=== PATIENT | male | born 1970 | race Hispanic/Latino ===

== ENCOUNTER → 2025-06-29 | Day surgery (SDC) | payer OTHER ==
[~2025-06-29] MED LIST: ATORVASTATIN CA10 MG PO; GLUCAGON FOR INJ 1 MG VIAL ONE; HUMALOG MI100 UNIT/2 SQ; LACTATED RINGER'S 1,000 ML ONE; LIDOCAINE HCL 2% LOCAL INJ 5 ML SDV VIAL INJ ONE; METFORMIN HCL500 MG PO; PIOGLITAZONE HC45 MG PO; PROPOFOL IV EMULSION 50 ML IV ONE
[2025-06-29 13:34] VITALS: TEMP 97.9
[2025-06-29 13:50] VITALS: BP 130/80; PULSE 58; RESP 16; O2SAT 98
== END | disposition home or self-care (01) ==
LOC: OR 10:35
PROVIDERS: ATTEND Internal Medicine Gastroenterology
DX: Z12.11 Encounter for screening for malignant neoplasm of colon (principal); D12.2 Benign neoplasm of ascending colon; D12.3 Benign neoplasm of transverse colon; D12.4 Benign neoplasm of descending colon; D12.5 Benign neoplasm of sigmoid colon; K57.30 Diverticulosis of large intestine without perforation or abscess without bleeding; K64.8 Other hemorrhoids; E11.9 Type 2 diabetes mellitus without complications; E78.5 Hyperlipidemia, unspecified; Z01.810 Encounter for preprocedural cardiovascular examination; Z79.84 Long term (current) use of oral hypoglycemic drugs; Z79.4 Long term (current) use of insulin; Z79.899 Other long term (current) drug therapy; Z87.891 Personal history of nicotine dependence
CPT/HCPCS: 36415; 45384; 45385; 82948; 93005; J1610; J2003; J2704; J7121; 45380